=== PATIENT | female | born 1975 | race Two or more races ===

== ENCOUNTER 2022-03-03 17:36 | Emergency (ER) | payer BC, SELFPAY ==
[2022-03-03 17:36] VITALS: PULSE 76; RESP 24; TEMP 36.9; O2SAT 100; BMI 26.4
[2022-03-03] MEDS: MethylPREDNISolone 125 MG/2 ML Vial 80 MG IV (17:43)
[2022-03-03] MEDS: DiphenhydrAMINE 50 MG/ML Syringe 25 MG IV (17:44)
--- NOTE | 2022-03-03 17:45 | EDS_ITS ---
HPI History of Present Illness Chief Complaint: Allergic Reaction Informant: patient and parent Onset/Context/Timing Onset: Today Context: Sudden Onset Timing: Continuous Quality: Swelling Location: Throat Worsened by: Nothing Relieved by: Nothing Narrative Narrative: Patient presents with allergic reaction that began just prior to arrival. Patient states she has a history of multiple environmental allergies. Patient states she was feeding her dog when this all began. Patient denies any new exposures to foods, soaps, detergents, perfumes, or shampoos. Patient states she feels like her throat is swelling. Patient took 2 doses of Benadryl and a dose of Zyrtec prior to arrival. Patient denies any hives. Patient states she feels like her throat is swelling. [facility] Medical History (Updated 03/03/22 @ 18:[address] Alek Carmona DO) Asthma Home Medications prednisone 20 mg tablet 60 mg PO DAILY #15 TABLETS 03/03/22 [Rx Last Taken Unknown] Allergy/AdvReac Type Severity Reaction Status Date / Time bee venom protein (honey bee) Allergy Anaphylaxis Verified 03/03/22 17:41 [bee sting] Environmental Allergies: Allergy Itching Verified 03/03/22 17:41 Uncoded [seasonal] Social History Smoking Status: Never smoker ROS ROS ED Constitutional Constitutional ED: Denies chills or fever(s) Eyes Eyes: Denies blurry vision or change in vision ENT ENT ED: Reports sore throat; Denies rhinorrhea Cardiovascular Cardiovascular: Denies chest pain or palpitations Respiratory/Chest Respiratory/Chest: Reports dyspnea; Denies cough Gastrointestinal Gastrointestinal: Denies nausea or vomiting Genitourinary Genitourinary ED: Denies dysuria or hematuria Musculoskeletal Musculoskeletal: Denies back pain or neck pain Integumentary Denies abscess or rash Neurologic Neurologic: Denies headache(s) or weakness Allergic/Immunologic Allergic/Immunologic ED: Reports mouth swelling; Denies tongue swelling or urticaria EXAM Physical Exam Const Vital Signs: 03/03/22 17:36 03/03/22 17:51 03/03/22 19:09 Temperature 98.4 F Temperature Source Temporal Pulse Rate 76 77 70 Respiratory Rate 24 H 16 16 Blood Pressure 108/88 H 114/83 H Blood Pressure Mean 94 93 Pulse Ox 100 98 100 Oxygen Delivery Method Room Air Room Air Room Air Positive well nourished and well developed General Appearance ED: well developed and NAD HEENT Reports moist mucous membranes HEENT Narrative: Oropharynx is clear. There is no oropharyngeal edema noted. There are no exudates noted. Eyes PERRL and EOMs intact bilaterally Neck supple and no JVD Resp normal respiratory effort and clear to auscultation bilaterally Cardio regular rate and regular rhythm GI normal to inspection, nondistended, normoactive bowel sounds, non-tender and non-distended Palpation: soft Extremity General Extremety ED: Negative for edema or tenderness General Extremity: Negative for edema Neuro oriented x3, CN's II-XII intact bilaterally and no sensory deficits noted Sensorium / Orientation: alert Motor Exam: strength 5/5 throughout Psych mental status grossly normal Mood & Affect: anxious Skin no rashes or lesions noted MDM MDM MDM Narrative Medical decision making narrative: Patient was given IV Solu-Medrol, Benadryl, and Pepcid. Patient is feeling better on reevaluation. Patient no longer feels like her throat is swelling. Patient states she is breathing better. Patient was given prescription for a short course of prednisone. Patient was instructed to follow-up with her primary care physician in 5 to 7 days. Patient understood and was agreeable with the plan. All questions were answered. Discharge Plan Triage Chief Complaint: Allergic Reaction ED Provider: Alek Carmona Dx/Rx/DC Orders Clinical Impression: Allergic reaction Instructions: ED General Allergic Reactions Prescriptions: New prednisone 20 mg tablet 60 mg PO DAILY Qty: 15 0RF Primary Care Provider: Care Physician,No Primary Referrals: Mendy Day MD [Med Staff - Catering Administrative Assistant] - 5-7 Days Care Physician,No Primary [Primary Care Provider] - Disposition Disposition: Home, Self Care
[2022-03-03] MEDS: Famotidine 200 MG/20 ML MDV 20 MG in 0.9% Normal Saline (Pres. free 8 ML 300 MG IV (17:47)
[2022-03-03 17:51] VITALS: BP 108/88; PULSE 77; RESP 16; O2SAT 98
[2022-03-03 19:09] VITALS: BP 114/83; PULSE 70; RESP 16; O2SAT 100
[2022-03-03 20:56] VITALS: BP 117/74; PULSE 69; RESP 16; O2SAT 99
== END 2022-03-03 20:57 | disposition home or self-care (01) ==
PROVIDERS: Emergency Provider Emergency Medicine; Visit Provider Emergency Medicine
DX: T78.40XA Allergy, unspecified, initial encounter (principal); X58.XXXA Exposure to other specified factors, initial encounter
CPT/HCPCS: 96365; 96375; 99282; J7030; A4216; J3490